=== PATIENT | male | born 1975 | race Caucasian/White ===

== ENCOUNTER 2019-07-25 08:12 | Emergency (ER) | payer SELFPAY ==
[2019-07-25 08:20] VITALS: BP 147/88
--- NOTE | 2019-07-25 08:42 | ER Document Report ---
HPI - HPI Patient complains to provider of: Dental pain Time Seen by Provider: 07/25/19 08:32 Onset/Duration: Persistent Quality of pain: Achy Pain Level: 2 Context: Patient complains of left lower jaw dental pain for the past 3 days with facial swelling. Patient reports multiple carried teeth. Patient denies any fever, difficulty breathing or difficulty swallowing. Associated Symptoms: Other - Dental pain Exacerbated by: Denies Relieved by: Denies Similar symptoms previously: Yes Recently seen / treated by doctor: No - ROS ROS below otherwise negative: Yes Systems Reviewed and Negative: Yes All other systems reviewed and negative - CONSTITUTIONAL Constitutional: DENIES: Fever - EENT EENT: DENIES: Sore Throat, Ear Pain Notes: Dental pain - RESPIRATORY Respiratory: DENIES: Coughing - GASTROINTESTINAL Gastrointestinal: DENIES: Nausea, Patient vomiting - DERM Skin Color: Normal Skin Problems: None Past Medical History - General Information source: Patient - Social History Smoking Status: Current Some Day Smoker Chew tobacco use (# tins/day): No Frequency of alcohol use: None Drug Abuse: None Occupation: Construction Lives with: Family Family History: Reviewed & Not Pertinent Patient has homicidal ideation: No - Medical History Medical History: Negative Surgical Hx: Negative - Immunizations Hx Diphtheria, Pertussis, Tetanus Vaccination: Yes Vertical Provider Document - CONSTITUTIONAL Agree With Documented VS: Yes Exam Limitations: No Limitations General Appearance: WD/WN, No Apparent Distress - INFECTION CONTROL TRAVEL OUTSIDE OF THE [place] IN LAST 30 DAYS: No - HEENT HEENT: Atraumatic, Normocephalic. negative: Pharyngeal Exudate, Pharyngeal Tenderness, Pharyngeal Erythema, Tympanic Membrane Red, Tympanic Membrane Bulging Mouth Diagram: 1 - dental decay, caries, with gingival induration, no drainable abscess, no trismus - NECK Neck: Normal Inspection, Supple. negative: Lymphadenopathy-Left, Lymp hadenopathy-Right - RESPIRATORY Respiratory: Breath Sounds Normal, No Respiratory Distress - CARDIOVASCULAR Cardiovascular: Regular Rate, Regular Rhythm - MUSCULOSKELETAL/EXTREMETIES Musculoskeletal/Extremeties: MAEW - NEURO Level of Consciousness: Awake, Alert, Appropriate Motor/Sensory: No Motor Deficit - DERM Integumentary: Warm, Dry, No Rash Course - Re-evaluation Re-evalutation: 07/25/19 09:00 Patient with multiple decayed teeth with gingival induration, no drainable abscess. Patient nontoxic in appearance. Good return precautions discussed with patient. Patient encouraged to follow-up dental care provider for further management. - Vital Signs Vital signs: Temp Pulse Resp BP Pulse Ox 97.9 F 61 14 147/88 H 99 07/25/19 08:31 07/25/19 08:17 07/25/19 08:17 07/25/19 08:17 07/25/19 08:17 Discharge - Discharge Clinical Impression: Infected dental caries Condition: Stable Disposition: HOME, SELF-CARE Instructions: Dentist, Dental Infection or Abscess ([facility]), Oral Narcotic Medication ([facility]) Additional Instructions: Return immediately for any new or worsening symptoms Followup with your dental care provider, call today to make a followup appointment Prescriptions: Acetaminophen with Codeine [Tylenol #3 Tablet] 1 each PO Q6HP PRN #12 tablet PRN Reason: Clindamycin HCl 300 mg PO TID #21 capsule Referrals: [facility] [Provider Group] - Follow up as needed
== END 2019-07-25 08:52 | disposition home or self-care (01) ==
LOC: ER 08:12
DX: K04.7 Periapical abscess without sinus (principal); K02.9 Dental caries, unspecified; K08.89 Other specified disorders of teeth and supporting structures; R68.84 Jaw pain; F17.200 Nicotine dependence, unspecified, uncomplicated
CPT/HCPCS: 99282